=== PATIENT | female | born 1995 | race Caucasian/White ===

== ENCOUNTER 2017-11-27 19:08 | Emergency (ER) | payer MEDICAID ==
[~2017-11-27] VITALS: Ht 152.4 cm; Wt 72.1 kg
[2017-11-27 19:33] VITALS: Ht 152.4 cm; Wt 72.1 kg
[2017-11-27 20:45] LABS: BASOPHIL % 0.5 % (0-2); PLATELET COUNT 252 x10^3mcL (130-400); RED CELL DISTRIBUTION WIDTH 12.1 % (11.5-14.5)
[2017-11-27 21:19] LABS: CHLORIDE SERUM 101 mmol/L (98-107); POTASSIUM SERUM 3.4 mmol/L (3.5-5.1); SODIUM SERUM 140 mmol/L (136-145)
[2017-11-27 21:59] LABS: ALBUMIN 4.2 g/dL (3.4-5.0); ALKALINE PHOSPHATASE 70 U/L (46-116); ALT/SGPT 33 U/L (14-59); AST/SGOT 18 U/L (15-37); BILIRUBIN TOTAL 0.1 mg/dL (0.20-1.00); CARBON DIOXIDE 27.5 mmol/L (21-32); CREATININE SERUM 0.7 mg/dL (0.6-1.0); GFR1 > 60 mL/min; GLUCOSE SERUM 90 mg/dL (74-106); LIPASE 175 IU/L (73-393); TOTAL PROTEIN, SERUM 7.9 g/dL (6.4-8.2)
[2017-11-27] MEDS ORDERED: POTASSIUM CHLO10 MEQ PO (22:34)
[2017-11-27] MEDS ORDERED: LASIX20 MG PO (22:34)
[2017-11-27] MEDS ORDERED: SYNTHROID0.088 MG PO (22:34)
[2017-11-27] MEDS ORDERED: ACYCLOVIR400 MG PO (22:35)
[2017-11-27] MEDS ORDERED: FENOFIBRATE MI200 MG PO (22:35)
[2017-11-27] MEDS ORDERED: SINGULAIR10 MG PO (22:35)
[2017-11-27] MEDS ORDERED: MENEST0.3 MG PO (22:35)
[2017-11-27] MEDS ORDERED: PANTOPRAZOLE SO40 M1 PO (22:36)
[2017-11-27] MEDS ORDERED: LOSARTAN POTASS25 M1 PO (22:36)
[2017-11-27] MEDS ORDERED: IBUPROFEN400 MG PO (22:36)
[2017-11-27 22:37] VITALS: BP 118/65
== END 2017-11-27 22:30 | disposition home or self-care (01) ==
LOC: ED 19:08
PROVIDERS: Emergency Medicine
DX: R10.31 Right lower quadrant pain (principal)
CPT/HCPCS: 36415; J1885; J7030; Q0092

== ENCOUNTER 2018-02-06 19:41 | Emergency (ER) | payer MEDICAID ==
[~2018-02-06 19:41] MED LIST: ACYCLOVIR400 MG PO; FENOFIBRATE MI200 MG PO; IBUPROFEN400 MG PO; LASIX20 MG PO; LOSARTAN POTASS25 M1 PO; MENEST0.3 MG PO; PANTOPRAZOLE SO40 M1 PO; POTASSIUM CHLO10 MEQ PO; SINGULAIR10 MG PO; SYNTHROID0.088 MG PO
[2018-02-07 00:17] LABS: BASOPHIL % 0.6 % (0-2); PLATELET COUNT 220 x10^3mcL (130-400); RED CELL DISTRIBUTION WIDTH 12.4 % (11.5-14.5)
[2018-02-07 00:20] LABS: CALCIUM 8.3 mg/dL (8.5-10.1); CARBON DIOXIDE 27.9 mmol/L (21-32); CHLORIDE SERUM 108 mmol/L (98-107); CREATININE SERUM 0.7 mg/dL (0.6-1.0); GFR1 > 60 mL/min; GLUCOSE SERUM 103 mg/dL (74-106); POTASSIUM SERUM 3.7 mmol/L (3.5-5.1); SODIUM SERUM 140 mmol/L (136-145)
[2018-02-07 00:25] LABS: ALBUMIN 3.7 g/dL (3.4-5.0); ALKALINE PHOSPHATASE 73 U/L (46-116); ALT/SGPT 27 U/L (14-59); AST/SGOT 19 U/L (15-37); BILIRUBIN TOTAL 0.2 mg/dL (0.20-1.00); LIPASE 144 IU/L (73-393); TOTAL PROTEIN, SERUM 6.8 g/dL (6.4-8.2)
[2018-02-07 00:33] VITALS: BP 113/62
== END 2018-02-07 00:56 | disposition home or self-care (01) ==
LOC: ED 19:41
PROVIDERS: Emergency Medicine
DX: R10.13 Epigastric pain (principal); R11.0 Nausea; R50.9 Fever, unspecified
CPT/HCPCS: 36415; Q0092

== ENCOUNTER 2018-05-16 14:31 | Emergency (ER) | payer MEDICAID ==
[~2018-05-16] VITALS: Ht 162.6 cm; Wt 69.9 kg
[2018-05-16 14:57] VITALS: Ht 162.6 cm; Wt 69.9 kg
[2018-05-16 16:55] VITALS: BP 125/80
== END 2018-05-16 16:55 | disposition home or self-care (01) ==
LOC: ED 14:31
DX: R51 Headache (principal)
CPT/HCPCS: J1885

== ENCOUNTER 2020-04-25 00:04 | Emergency (ER) | payer OTHER ==
[~2020-04-25] VITALS: Ht 167.6 cm; Wt 74.4 kg
[2020-04-25 00:10] VITALS: Ht 167.6 cm; Wt 74.4 kg
[2020-04-25 01:22] LABS: UA SPECIFIC GRAVITY 1.025 (1.005-1.035); microscopic required? YES; urine erythrocyte 3+ (NEGATIVE)
[2020-04-25 02:01] VITALS: BP 112/56
== END 2020-04-25 02:01 | disposition home or self-care (01) ==
LOC: ED 00:04
PROVIDERS: Emergency Medicine
DX: N39.0 Urinary tract infection, site not specified (principal)

== ENCOUNTER 2020-07-01 05:31 | Emergency (ER) | payer OTHER ==
[~2020-07-01] VITALS: Ht 165.1 cm; Wt 76.3 kg
[2020-07-01 05:40] VITALS: Ht 165.1 cm; Wt 76.3 kg
[2020-07-01 06:23] LABS: BASOPHIL % 0.3 % (0-2); PLATELET COUNT 249 x10^3mcL (130-400); RED CELL DISTRIBUTION WIDTH 12.4 % (11.5-14.5)
[2020-07-01 06:38] LABS: CALCIUM 8.4 mg/dL (8.5-10.1); CARBON DIOXIDE 22.3 mmol/L (21-32); CHLORIDE SERUM 101 mmol/L (98-107); CREATININE SERUM 0.6 mg/dL (0.6-1.0); GFR1 > 60 mL/min; GLUCOSE SERUM 103 mg/dL (74-106); POTASSIUM SERUM 3.6 mmol/L (3.5-5.1); SODIUM SERUM 136 mmol/L (136-145)
[2020-07-01 06:42] LABS: ALBUMIN 3.9 g/dL (3.4-5.0); ALKALINE PHOSPHATASE 56 U/L (46-116); ALT/SGPT 12 U/L (14-59); AST/SGOT 12 U/L (15-37); BILIRUBIN TOTAL 0.28 mg/dL (0.20-1.00); LIPASE 121 IU/L (73-393); TOTAL PROTEIN, SERUM 7.6 g/dL (6.4-8.2)
[2020-07-01 08:17] VITALS: BP 124/75
== END 2020-07-01 08:17 | disposition home or self-care (01) ==
LOC: ED 05:31
PROVIDERS: Emergency Medicine
DX: K29.70 Gastritis, unspecified, without bleeding (principal)
CPT/HCPCS: J1885; Q0162